=== PATIENT | male | born 1940 | race African-American/Black ===

== ENCOUNTER 2023-05-05 23:15 | Inpatient (IN) | payer MEDICARE, BC ==
[~2023-05-05] VITALS: Ht 172.7 cm; Wt 65.8 kg
[2023-05-05] MEDS ORDERED: methylPREDNISolone SOD SUCC 125 MG/2 ML VIAL IV ONE (23:45)
[2023-05-05] MEDS ORDERED: ALBUTEROL SULFATE 2.5 MG/3 ML NEBU NEB ONE (23:45)
[2023-05-05] MEDS ORDERED: IPRATROPIUM BROMIDE 0.5 MG/2.5 ML NEBU NEB ONE (23:45)
[2023-05-05] MEDS ORDERED: IPRA0.2S48 NEB (23:52)
[2023-05-05] MEDS ORDERED: PRED50TA PO (23:52)
[2023-05-05] MEDS ORDERED: IPRATROPIUM BROMIDE 0.5 MG/2.5 ML NEBU ONE (23:59)
[2023-05-05] MEDS ORDERED: ALBUTEROL SULFATE 2.5 MG/3 ML NEBU ONE (23:59)
[2023-05-06 00:02] VITALS: O2SAT 93
[2023-05-06 00:14] VITALS: O2SAT 98
[2023-05-06 00:17] VITALS: O2SAT 98
[2023-05-06] MEDS ORDERED: AZIT250T13 PO (00:21)
[2023-05-06] MEDS ORDERED: PRIM50TA27 PO (00:21)
[2023-05-06] MEDS ORDERED: METF-442 PO (00:21)
[2023-05-06] MEDS ORDERED: MONT10TA22 PO (00:21)
[2023-05-06] MEDS ORDERED: ESCI5TAB PO (00:21)
[2023-05-06] MEDS ORDERED: EMPA25TA PO (00:21)
[2023-05-06] MEDS ORDERED: METO25TA6 PO (00:21)
[2023-05-06] MEDS ORDERED: FURO-151 PO (00:21)
[2023-05-06] MEDS ORDERED: ALOG25TA PO (00:21)
[2023-05-06 00:22] LABS: BASOPHILS # (AUTO) 0.1 K/UL (0.0-0.2); BASOPHILS % (AUTO) 0.7 % (0.0-2.0); EOSINOPHILS # (AUTO) 0.1 K/uL (0.0-0.7); EOSINOPHILS % (AUTO) 0.5 % (0.0-7.0); HEMOGLOBIN 12.8 g/dL (12.5-16.3); LYMPHOCYTES # (AUTO) 0.1 K/uL (0.8-4.8); MEAN CORPUSCULAR HEMOGLOBIN 32.3 uug (23.8-33.4); MEAN CORPUSCULAR HGB CONC 32 g/dL (32.5-36.3); MEAN CORPUSCULAR VOLUME 100.6 fL (73.0-96.2); MONOCYTES # (AUTO) 0.1 K/uL (0.1-1.30); MONOCYTES % (AUTO) 1.1 % (0.0-11.0); NEUTROPHILS # (AUTO) 12.3 K/uL (1.8-8.9); NEUTROPHILS % (AUTO) 96.7 % (38.5-71.5); PLATELET COUNT (AUTO) 267 K/uL (152-348); RED BLOOD CELL COUNT(AUTO) 3.97 MIL/uL (4.06-5.63); RED CELL DISTRIBUTION WIDTH 16.6 % (12.1-16.2); WHITE BLOOD COUNT (AUTO) 12.8 K/uL (3.6-10.2)
[2023-05-06 00:28] LABS: CALCIUM 8.8 mg/dL (8.5-10.1); CARBON DIOXIDE 23 mmol/L (21-32); CHLORIDE 102 mmol/L (98-107); CREATININE 0.9 mg/dL (0.6-1.3); GLUCOSE 174 mg/dL (74-106); POTASSIUM 5.3 mmol/L (3.5-5.1); SODIUM SERUM 139 mmol/L (136-145); UREA NITROGEN, BLOOD 15 mg/dL (7-18)
[2023-05-06 00:29] LABS: DIFFERENTIAL COMMENT 1
[2023-05-06] MEDS ORDERED: methylPREDNISolone SOD SUCC 125 MG/2 ML VIAL ONE (00:30)
[2023-05-06 00:41] LABS: ALANINE AMINOTRANSFERASE 28 U/L (16-63); ALBUMIN 3.5 g/dL (3.4-5.0); ALKALINE PHOSPHATASE 57 U/L (50-136); ASPARTATE AMINOTRANSFERASE 38 U/L (15-37); BILIRUBIN,DIRECT 0.1 mg/dL (0.0-0.2); BILIRUBIN,TOTAL 0.5 mg/dL (0.2-1.0); NT-PRO BNP 1584 pg/mL (0-125); TOTAL PROTEIN, SERUM 7.1 g/dL (6.4-8.2)
[2023-05-06] MEDS ORDERED: METOPROLOL TARTRATE 5 MG/5 ML VIAL IVP ONE ×6 (00:53→02:21)
[2023-05-06] MEDS ORDERED: ASPIRIN 81 MG TAB.CHEW ONE ×2 (00:53→09:00)
[2023-05-06] MEDS ORDERED: ENOXAPARIN SODIUM 60 MG/0.6 ML DISP.SYRIN SQ ONE ×2 (00:54→01:00)
[2023-05-06] MEDS ORDERED: NITROGLYCERIN OINT 1 GM PACKET TP ONE ×2 (00:54→01:00)
[2023-05-06] MEDS ORDERED: ASPIRIN 81 MG TAB.CHEW PO ONE (01:00)
[2023-05-06] MEDS ORDERED: hydrALAZINE HCL 20 MG/1 ML VIAL IV PRN (02:00)
[2023-05-06] MEDS ORDERED: ALBUTEROL SULFATE 8 GM HFA.AER.AD IH PRN (02:00)
[2023-05-06] MEDS ORDERED: FUROSEMIDE 40 MG TABLET PO SCH (02:00)
[2023-05-06] MEDS ORDERED: DEXTROSE 50% 50 ML DISP.SYRIN IV PRN (02:00)
[2023-05-06] MEDS ORDERED: ONDANSETRON 4 MG/2 ML VIAL IV PRN (02:00)
[2023-05-06] MEDS ORDERED: INSULIN REGULAR, HUMAN 300 UNITS/3 ML VIAL SQ PRN (02:00)
[2023-05-06] MEDS ORDERED: ACETAMINOPHEN 325 MG TABLET PO PRN (02:00)
[2023-05-06] MEDS ORDERED: MORPHINE SULFATE 2 MG/1 ML DISP.SYRIN IVP PRN (02:00)
[2023-05-06] MEDS: BLOOD SUGAR DIAGNOSTIC 1 EACH STRIP VI SCH ×2 (07:55→12:20)
[2023-05-06] MEDS ORDERED: INSULIN REGULAR, HUMAN 300 UNIT/3 ML VIAL ONE (07:59)
[2023-05-06] MEDS: INSULIN REGULAR, HUMAN 300 UNIT/3 ML VIAL SQ PRN ×2 (08:21→12:23)
[2023-05-06] MEDS ORDERED: METOPROLOL TARTRATE 25 MG TABLET PO SCH (09:00)
[2023-05-06] MEDS ORDERED: DEXAMETHASONE SOD PHOSPHATE 10 MG INJ ONE (09:00)
[2023-05-06] MEDS ORDERED: ASPIRIN 81 MG TAB.CHEW PO SCH (09:00)
[2023-05-06] MEDS ORDERED: DEXAMETHASONE SOD PHOSPHATE 4 MG INJ IV SCH (09:00)
[2023-05-06] MEDS ORDERED: CHOLECALCIFEROL 1,000 UNIT TABLET PO SCH (09:00)
[2023-05-06] MEDS ORDERED: HEPARIN SODIUM,PORCINE 5,000 UNITS/ML VIAL SQ SCH (09:00)
[2023-05-06] MEDS ORDERED: Medication Not On Formulary EA (Escitalopram Oxalate (Lexapro) 1 TAB) PO SCH (09:00)
[2023-05-06] MEDS ORDERED: FLUTICASONE/VILANTEROL 1 EACH BLST.W.DEV INH SCH (09:00)
[2023-05-06] MEDS ORDERED: CHOLECALCIFEROL 1,000 UNIT TABLET ONE (09:01)
[2023-05-06] MEDS ORDERED: HEPARIN SODIUM,PORCINE 5,000 UNITS/ML VIAL ONE (09:01)
[2023-05-06] MEDS ORDERED: CEFTRIAXONE 1 G in IV DEXTROSE 5% 50 ML IV SCH (09:30)
[2023-05-06] MEDS ORDERED: HOME MED MISCELLANEOUS XX SCH (09:30)
[2023-05-06] MEDS ORDERED: AZITHROMYCIN IV 500 MG in IV DEXTROSE 5% 250 ML IV SCH (09:30)
[2023-05-06] MEDS ORDERED: CEFTRIAXONE /D5W 50ML IVPB **ER PYXIS IV ONE (09:57)
[2023-05-06] MEDS ORDERED: AZITHROMYCIN 500MG/ D5W 250ML IVPB **ER PYXIS ONLY IV ONE (09:58)
[2023-05-06] MEDS ORDERED: ESCITALOPRAM OXALATE 10 MG TABLET PO SCH (14:28)
[2023-05-06 14:35] VITALS: BP 169/99; TEMP 98.2; O2SAT 98
[2023-05-06] MEDS ORDERED: DEXA6TAB6 PO (16:55)
[2023-05-06] MEDS ORDERED: INSU100V28 SQ (16:55)
[2023-05-06] MEDS ORDERED: AZIT1PAC9 PO (16:55)
[2023-05-06] MEDS ORDERED: ENOX40DI SUBCUT (16:57)
[2023-05-06] MEDS ORDERED: DOXY100C5 PO (17:08)
[2023-05-06] MEDS ORDERED: MONTELUKAST SODIUM 10 MG TABLET PO SCH (18:00)
[2023-05-06] MEDS ORDERED: PRIMIDONE 50 MG TABLET PO SCH (21:00)
[2023-05-07] MEDS ORDERED: DOXYCYCLINE HYCLATE IV 100 MG in IV DEXTROSE 5% 100 ML IV SCH (09:00)
[2023-05-07] MEDS ORDERED: CEFTRIAXONE 1 G in IV DEXTROSE 5% 50 ML IV SCH (09:00)
== END 2023-05-06 17:45 | disposition home or self-care (01) | DRG 177 ==
LOC: ER 05-06 00:12 → TELE3 05-06 12:02
PROVIDERS: ADMIT Internal Medicine; ATTEND Nurse Practitioner Acute Care
DX: U07.1 COVID-19 (principal); I21.A1 Myocardial infarction type 2; J96.21 Acute and chronic respiratory failure with hypoxia; J43.9 Emphysema, unspecified; I16.0 Hypertensive urgency; E87.5 Hyperkalemia; E11.65 Type 2 diabetes mellitus with hyperglycemia; Z79.52 Long term (current) use of systemic steroids; Z79.84 Long term (current) use of oral hypoglycemic drugs; Z79.899 Other long term (current) drug therapy; Z87.891 Personal history of nicotine dependence; Z99.81 Dependence on supplemental oxygen
CPT/HCPCS: 36415; 71045; 84484; 85025; 87040; 93005; 93307; G0378; J0456; J0696; J1100; J1644; J1650; J1815; J2930; J3490; J3535; J3590